=== PATIENT | female | born 1940 | race Caucasian/White ===

== ENCOUNTER → 2016-03-21 | Outpatient (CLI) | payer OTHER, MEDICARE ==
--- NOTE | 2016-03-21 14:37 | MA ---
Screening Bilateral Digital Mammogram History: Screening. Breast parenchymal density: B. Technique: Four digital views of each breast are obtained including CC and oblique lateral Kilo (im plant displaced) and non-Kilo (implant not displaced) views. CAD is utilized using the iCAD product . Comparison: May 2014, April 2013 and March 2012. Findings: Bilateral breast implants are in place. No suspicious areas are identified. There is dense diffuse right and minimal left, implant capsular calcification. Impression: Negative mammogram. Routine screening is recommended in one year. BI-RADS : 1, Negative. [facility] will send a result letter to the patient. Negative mammography should not preclude additional workup of a clinically suspicious finding. The patient's information is entered into a reminder system with a target due date for her next mammo gram.
== END ==
LOC: FIMAGING 13:55
DX: Z12.31 Encounter for screening mammogram for malignant neoplasm of breast (principal)
CPT/HCPCS: G0202

== ENCOUNTER 2016-07-16 10:03 | Emergency (ER) | payer OTHER, MEDICARE ==
[2016-07-16 10:12] VITALS: TEMP 97.7; O2SAT 97
--- NOTE | 2016-07-16 10:52 | CPEKG ---
Heart Rate: 55 RR Interval: 1091 P-R Interval: 156 QRSD Interval: 94 QT Interval: 428 QTC Interval: 410 P [place]: 60 QRS [place]: -21 T Wave [place]: 42 EKG Severity - OTHERWISE NORMAL ECG - EKG Impression: SINUS RHYTHM EKG Impression: BORDERLINE LEFT AXIS DEVIATION Electronically Signed By: Quoc Giron 16-Jul-2016 10:58:35
[2016-07-16] MEDS ORDERED: NS 1,000 ML IV ONE (11:22)
--- NOTE | 2016-07-16 11:26 | EDPHY ---
H & P Stated Complaint: dizzy/lightheaded Time Seen by Provider: 07/16/16 11:11 HPI/ROS: CHIEF COMPLAINT: Feeling strange HISTORY OF PRESENT ILLNESS: The patient is a 76-year-old female who comes to the emergency department complaining that she "feels strange" particularly when she stands up and tries to walk. She states that is not feel like of vertigo. She has trouble describing it and states that it feels weird. She does not necessary feel like she is going to faint or blackout. She denies chest pain or shortness of breath. She denies palpitations. She denies abdominal pain, nausea, vomiting or diarrhea. She states that she has felt this way intermittently for about the last month. She has also felt for the last 3 or 4 months that her legs feel heavy. She is able to ambulate. She denies headache. No recent fevers or illness. REVIEW OF SYSTEMS: Constitutional: denies: chills, fever, recent illness, recent injury EENTM: denies: blurred vision, double vision, nose congestion Respiratory: denies: cough, shortness of breath Cardiac: denies: chest pain, irregular heart rate, lightheadedness, palpitations Gastrointestinal/Abdominal: denies: abdominal pain, diarrhea, nausea, vomiting, blood streaked stools Genitourinary: denies: dysuria, frequency, hematuria, pain Musculoskeletal: See HPI Skin: denies: lesions, rash, jaundice, bruising Neurological: See HPI denies: headache, numbness, paresthesia, tingling, dizziness, weakness Hematologic/Lymphatic: denies: blood clots, easy bleeding, easy bruising Immunologic/allergic: denies: HIV/AIDS, transplant EXAM: GENERAL: Well-appearing, well-nourished and in no acute distress. HEAD: Atraumatic, normocephalic. EYES: Pupils equal round and reactive to light, extraocular movements intact, sclera anicteric, conjunctiva are normal. ENT: TMs normal, nares patent, oropharynx clear without exudates. Moist mucous membranes. NECK: Normal range of motion, supple without lymphadenopathy or JVD. LUNGS: Breath sounds clear to auscultation bilaterally and equal. No wheezes rales or rhonchi. HEART: Regular rate and rhythm without murmurs, rubs or gallops. ABDOMEN: Soft, nontender, normoactive bowel sounds. No guarding, no rebound. No masses appreciated. BACK: No CVA tenderness, no spinal tenderness, step-offs or deformities EXTREMITIES: Normal range of motion, no pitting or edema. No clubbing or cyanosis. NEUROLOGICAL: Cranial nerves II through XII grossly intact. Normal speech, normal gait. 5/5 strength, normal movement in all extremities, normal sensation PSYCH: Normal mood, normal affect. SKIN: Warm, dry, normal turgor, no visible rashes or lesions. Source: Patient Exam Limitations: No limitations - Personal History Current Tetanus/Diphtheria Vaccine: Yes Tetanus Vaccine Date: WITHIN 10 Y - Medical/Surgical History Hx Asthma: No Hx Chronic Respiratory Disease: No Hx Diabetes: No Hx Cardiac Disease: No Hx Renal Disease: No Hx Cirrhosis: No Hx Alcoholism: No Hx HIV/AIDS: No Hx Splenectomy or Spleen Trauma: No Other PMH: r hip replacement, hypothyroid, - Family History Significant Family History: No pertinent family hx - Social History Smoking Status: Never smoked Alcohol Use: Sober Drug Use: None Constitutional: Initial Vital Signs Temperature (C) 36.5 C 07/16/16 10:08 Heart Rate 60 07/16/16 10:08 Respiratory Rate 17 07/16/16 10:08 Blood Pressure 127/68 H 07/16/16 10:08 O2 Sat (%) 97 07/16/16 10:08 O2 Delivery Mode Room Air Allergies/Adverse Reactions: HAYFEVER Allergy (Mild, Uncoded 07/16/16 10:07) Congestion Home Medications: Medication Instructions Recorded Calcium Carb W/Vit D [Calcium Carb 1 each PO DAILY 06/08/12 W/Vit D 500/200 (OTC)] Calcium Carbonate [Calcium Carb 2 tbs PO HS 06/08/12 Oral Liquid (OTC)] Docusate Sodium [Colace 100 MG 100 mg PO PRN PRN 06/08/12 (OTC)] Fluticasone Nasal [Flonase Nasal 2 sprays [place] HS PRN 06/08/12 Halma (RX)] Levothyroxine [Synthroid 100 mcg 100 mcg PO DAILY 06/08/12 (RX)] Sennosides [Senokotxtra] 17.2 mg PO PRN PRN 06/08/12 Simvastatin 20 mg PO HS 06/08/12 Zolpidem Tartrate 10 mg PO HS PRN 06/08/12 celeCOXIB [Celebrex (RX)] 400 mg PO ONCE 06/08/12 Recon 07/07/12 07/07/12 Medical Decision Making - Diagnostics EKG Interpretation: An EKG obtained and was read and documented in trace view. Please see trace view for full reading and report. Sinus rhythm, no acute ischemic changes ED Course/Re-evaluation: The patient's orthostatic vital signs are normal. She is feeling much better and is currently asymptomatic. I offered admission but she would prefer to go home and follow up with her primary Dr. Maye Sampson. I agree that this is reasonable plan. We discussed indications for returning. She declines further workup or testing at this time. She understands that I do not have a specific diagnosis or her symptoms. Differential Diagnosis: Partial list of the Differential diagnosis considered include but were not limited to; anemia, orthostasis, arrhythmia, benign positional vertigo, CVA and although unlikely based on the history and physical exam, I also considered MS, Guillain-Vernon, spinal cord compression. I discussed these differential diagnoses and the plan with the patient as well as the usual and expected course. The patient understands that the diagnosis is provisional and that in medicine we are not always correct and that further workup is often warranted. Usual and customary warnings were given. All of the patient's questions were answered. The patient was instructed to return to the emergency department should the symptoms at all worsen or return, otherwise to followup with the physician as we discussed. - Data Points Laboratory Results: Laboratory Results 07/16/16 10:59 07/16/16 10:59 07/16/16 07/16/16 10:59 10:59 WBC 5.76 10^3/uL 10^3/uL (3.80-9.50) RBC 4.21 10^6/uL 10^6/uL (4.18-5.33) Hgb 13.9 g/dL g/dL (12.6-16.3) Hct 42.0 % % (38.0-47.0) MCV 99.8 fL fL (81.5-99.8) MCH 33.0 pg pg (27.9-34.1) MCHC 33.1 g/dL g/dL (32.4-36.7) RDW 12.4 % % (11.5-15.2) Plt Count 198 10^3/uL 10^3/uL (150-400) MPV 11.5 fL fL (8.7-11.7) Neut % (Auto) 42.5 % % (39.3-74.2) Lymph % (Auto) 42.2 % % (15.0-45.0) [place] % (Auto) 9.9 % % (4.5-13.0) Eos % (Auto) 4.0 % % (0.6-7.6) Baso % (Auto) 1.2 % % (0.3-1.7) Nucleat RBC Rel Count 0.0 % % (0.0-0.2) Absolute Neuts (auto) 2.45 10^3/uL 10^3/uL (1.70-6.50) Absolute Lymphs (auto) 2.43 10^3/uL 10^3/uL (1.00-3.00) Absolute Monos (auto) 0.57 10^3/uL 10^3/uL (0.30-0.80) Absolute Eos (auto) 0.23 10^3/uL 10^3/uL (0.03-0.40) Absolute Basos (auto) 0.07 10^3/uL 10^3/uL (0.02-0.10) Absolute Nucleated RBC 0.00 10^3/uL 10^3/uL (0-0.01) Immature Gran % 0.2 % % (0.0-1.1) Immature Gran # 0.01 10^3/uL 10^3/uL (0.00-0.10) Sodium 139 mEq/L mEq/L (134-144) Potassium 4.2 mEq/L mEq/L (3.5-5.2) Chloride 106 mEq/L mEq/L (97-110) Carbon Dioxide 28 mEq/l mEq/l (22-31) Anion Gap 5 mEq/L L mEq/L (8-16) BUN 15 mg/dL mg/dL (7-23) Creatinine 0.7 mg/dL mg/dL (0.6-1.0) Estimated GFR > 60 Glucose 110 mg/dL H mg/dL (70-100) Calcium 9.3 mg/dL mg/dL (8.5-10.4) Total Bilirubin 0.7 mg/dL mg/dL (0.1-1.4) Conjugated Bilirubin 0.3 mg/dL mg/dL (0.0-0.5) Unconjugated Bilirubin 0.4 mg/dL mg/dL (0.0-1.1) AST 23 IU/L IU/L (14-46) ALT 37 IU/L IU/L (9-52) Alkaline Phosphatase 52 IU/L IU/L (38-126) Troponin I < 0.012 ng/mL ng/mL (0-0.034) Total Protein 6.7 g/dL g/dL (6.3-8.2) Albumin 3.9 g/dL g/dL (3.5-5.0) Lipase 92.0 IU/L IU/L (23-300) TSH 0.441 uIU/mL L uIU/mL (0.465-4.680) Free T4 1.14 ng/dL ng/dL (0.59-2.19) Medications Given: Discontinued Medications Sodium Chloride (Ns) 1,000 mls @ 0 mls/hr IV ONCE ONE PRN Reason: Wide Open Stop: 07/16/16 11:23 Last Admin: 07/16/16 11:45 Dose: 1,000 mls Departure - Departure Disposition: Home, Routine, Self-Care Clinical Impression: Lightheaded Condition: Fair Instructions: Lightheadedness (ED) Referrals: Xiao Sampson MD [Primary Care Provider] - As per Instructions
[2016-07-16 11:29] LABS: % IMMATURE GRANULYOCYTES 0.2 % (0.0-1.1); ABSOLUTE IMMATURE GRANULOCYTES 0.01 10^3/uL (0.00-0.10); ADD DIFF? NO; ADD MORPH? NO; ADD SCAN? NO; ATYPICAL LYMPHOCYTE FLAG 10 (0-99); FRAGMENT RBC FLAG 0 (0-99); HEMOGLOBIN 13.9 g/dL (12.6-16.3); LEFT SHIFT FLG 0 (0-99); LIPEMIA HEMOLYSIS FLAG 80 (0-99); MEAN CELL HEMOGLOBIN CONCENTR. 33.1 g/dL (32.4-36.7); MEAN CELL VOLUME 99.8 fL (81.5-99.8); MEAN PLATELET VOLUME 11.5 fL (8.7-11.7); PLATELET CLUMPS FLAG 0 (0-99); PLATELET COUNT 198 10^3/uL (150-400); RED BLOOD CELL COUNT 4.21 10^6/uL (4.18-5.33); RED CELL DISTRIBUTION WIDTH 12.4 % (11.5-15.2)
[2016-07-16 11:37] LABS: ALANINE AMINOTRANSFERASE 37 IU/L (9-52); ALBUMIN 3.9 g/dL (3.5-5.0); ALKALINE PHOSPHATASE 52 IU/L (38-126); ANION GAP 5 mEq/L (8-16); ASPARTATE AMINOTRANSFERASE 23 IU/L (14-46); BILIRUBIN,TOTAL 0.7 mg/dL (0.1-1.4); BILIRUBIN-CONJUGATED 0.3 mg/dL (0.0-0.5); BILIRUBIN-UNCONJUGATED 0.4 mg/dL (0.0-1.1); CALCIUM 9.3 mg/dL (8.5-10.4); CARBON DIOXIDE 28 mEq/l (22-31); CHLORIDE 106 mEq/L (97-110); CREATININE 0.7 mg/dL (0.6-1.0); GLOMERULAR FILTRATION RATE > 60; GLUCOSE 110 mg/dL (70-100); POTASSIUM 4.2 mEq/L (3.5-5.2); SODIUM 139 mEq/L (134-144); TOTAL PROTEIN 6.7 g/dL (6.3-8.2)
[2016-07-16 11:49] LABS: TROPONIN I < 0.012 ng/mL (0-0.034)
[2016-07-16 12:40] VITALS: BP 137/67; PULSE 50; RESP 16
== END 2016-07-16 12:39 | disposition home or self-care (01) ==
DX: R42 Dizziness and giddiness (principal)

== ENCOUNTER → 2017-07-09 | Outpatient (CLI) | payer OTHER, MEDICARE | LOC: FIMAGING 11:30 | PROVIDERS: ATTEND Family Medicine | DX: Z12.31 Encounter for screening mammogram for malignant neoplasm of breast (principal); Z80.3 Family history of malignant neoplasm of breast ==